=== PATIENT | male | born 2000 | race Caucasian/White ===

== ENCOUNTER 2020-11-03 21:26 | Emergency (ER) | payer OTHER ==
[~2020-11-03] VITALS: Ht 170.2 cm; Wt 54.4 kg
[2020-11-03] MEDS ORDERED: ONDANSETRON HCL/PF 4 MG/2 ML VIAL ONE (22:08)
--- NOTE | 2020-11-03 22:19 | NUR ---
blood collected and sent to the lab with bark peeler.
--- NOTE | 2020-11-03 22:19 | NUR ---
patient to er bed 11 bib girlfriend c/o nausea 3xdays. Patient states that he takes compazine for nasuea, but with no relief. patient states that he has been taking klonopin for anxiety and has not been hansel to take any for the last 3 days due to nausea and vomiting. patient is aaox4. no sob .breathing evenly and unlabored on room air. connected to the monitor.
[2020-11-03 22:24] LABS: BASOPHILS # (AUTO) 0.1 /CMM (0.0-0.2); BASOPHILS % (AUTO) 0.5 % (0.0-2.0); EOSINOPHILS % (AUTO) 1.8 % (0.0-6.0); HEMATOCRIT 40 % (39-51); HEMOGLOBIN 13.5 g/dL (13.5-17.5); LYMPHOCYTES # (AUTO) 4.2 /CMM (0.8-4.8); MEAN CORPUSCULAR HGB CONC 34 g/dl (31.0-36.0); MEAN CORPUSCULAR VOLUME 90 fL (80-96); MONOCYTES # (AUTO) 0.6 /CMM (0.1-1.30); MONOCYTES % (AUTO) 6.1 % (2.0-12.0); NEUTROPHILS # (AUTO) 4.7 /CMM (1.8-8.9); NEUTROPHILS % (AUTO) 48.6 % (43.0-81.0); PLATELET COUNT (AUTO) 145 /CMM (150-450); RED BLOOD CELL COUNT(AUTO) 4.42 MIL/uL (4.5-6.0); WHITE BLOOD COUNT (AUTO) 9.7 K/uL (4.3-11.0)
[2020-11-03] MEDS ORDERED: IV NS 0.9% 1,000 ML BAG IV ONE (22:30)
[2020-11-03] MEDS ORDERED: ONDANSETRON HCL/PF 4 MG/2 ML VIAL IVP ONE (22:30)
--- NOTE | 2020-11-03 22:35 | NUR ---
urine collected sent t o lab
[2020-11-03 22:38] LABS: BILIRUBIN,URINE Negative (NEGATIVE); COLOR,URINE YELLOW (YELLOW); LEUKOCYTE ESTERASE ,URINE Trace (NEGATIVE); NITRITE, URINE Negative (NEGATIVE); PH,URINE 6.5 (5.0-8.0); PROTEIN,URINE Negative (NEGATIVE); UGLUCOSE Negative (NEGATIVE); UROBILINOGEN,URINE 0.2 EU/dL (0.2)
[2020-11-03 22:38] LABS: CALCIUM, SERUM 9.1 mg/dL (8.5-10.1); CREATININE 1.1 mg/dL (0.6-1.3); POTASSIUM 3.9 mmol/L (3.5-5.1)
[2020-11-03 22:43] LABS: ALBUMIN 4.4 g/dL (3.4-5.0); BILIRUBIN,DIRECT 0.1 mg/dL (0.0-0.2); BILIRUBIN,TOTAL 0.2 mg/dL (0.2-1.0)
[2020-11-03 22:54] LABS: BACTERIA,URINE None seen /HPF (None Seen); RBC,URINE 0-2 /HPF (0-2); SQUAMOUS EPITHELIAL CELL,UR Few /HPF (None Seen)
[2020-11-03] MEDS ORDERED: PROM50TA5 GT (22:57)
--- NOTE | 2020-11-03 23:11 | NUR ---
Patient discharged to home in stable condition. Written and verbal after care instructions given. Patient verbalizes understanding of instruction.
--- NOTE | 2020-11-03 23:11 | NUR ---
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
--- NOTE | 2020-11-03 23:11 | NUR ---
IV removed. Catheter intact and site benign. Pressure and 4x4 applied to site. No bleeding noted.
--- NOTE | 2020-11-03 23:11 | NUR ---
Patient is ambulatory with a steady gait.
[2020-11-03 23:14] VITALS: BP 112/78
== END 2020-11-03 23:15 | disposition home or self-care (01) ==
LOC: ER 21:28
DX: R11.2 Nausea with vomiting, unspecified (principal); R10.13 Epigastric pain; R30.0 Dysuria; F41.9 Anxiety disorder, unspecified; F43.10 Post-traumatic stress disorder, unspecified
CPT/HCPCS: 36415; 80048; 80076; 81001; 83690; 85025; 87086; 96361; 96374; 99283; J2405; J7030

== ENCOUNTER 2021-03-22 13:55 | Emergency (ER) | payer OTHER ==
[~2021-03-22] VITALS: Ht 170.2 cm; Wt 76.2 kg
[~2021-03-22 13:55] MED LIST: PROM50TA5 GT
--- NOTE | 2021-03-22 13:55 | NUR ---
PT BIB SELF C/O FEELING WEAK, NAUSEATED, BODY PAIN.UNABLE TO GET HIS METHADONE X 3 DAYS. 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 WILL CONTINUE TO MONITOR.
--- NOTE | 2021-03-22 14:37 | NUR ---
SEEN AND EXAMINED BY .
[2021-03-22] MEDS ORDERED: ACETAMINOPHEN ES 500 MG TABLET ONE (14:45)
[2021-03-22] MEDS ORDERED: ONDANSETRON HCL/PF 4 MG/2 ML VIAL ONE (14:45)
--- NOTE | 2021-03-22 14:55 | NUR ---
IV LINE ESTABLISHED BLOOD DRAWN AND SENT TO LAB.
[2021-03-22] MEDS ORDERED: ONDANSETRON HCL/PF 4 MG/2 ML VIAL IVP ONE (15:00)
[2021-03-22] MEDS ORDERED: IV NS 0.9% 1,000 ML BAG IV ONE (15:00)
[2021-03-22] MEDS ORDERED: LORAZEPAM INJ 2 MG/ML VIAL IV ONE ×2 (15:00→16:30)
[2021-03-22] MEDS ORDERED: ACETAMINOPHEN ES 500 MG TABLET PO ONE (15:00)
[2021-03-22] MEDS ORDERED: LORAZEPAM INJ 2 MG/ML VIAL ONE ×2 (15:01→16:36)
[2021-03-22 15:07] LABS: BASOPHILS % (AUTO) 0.3 % (0.0-2.0); EOSINOPHILS % (AUTO) 0.2 % (0.0-6.0); HEMATOCRIT 38 % (39-51); LYMPHOCYTES # (AUTO) 1.1 K/uL (0.8-4.8); MEAN CORPUSCULAR HGB CONC 34 g/dl (31.0-36.0); MEAN CORPUSCULAR VOLUME 90 fL (80-96); MONOCYTES # (AUTO) 0.4 K/uL (0.1-1.30); MONOCYTES % (AUTO) 4.1 % (2.0-12.0); NEUTROPHILS # (AUTO) 7.2 K/uL (1.8-8.9); NEUTROPHILS % (AUTO) 82.4 % (43.0-81.0); PLATELET COUNT (AUTO) 211 K/uL (150-450); RED BLOOD CELL COUNT(AUTO) 4.24 MIL/uL (4.5-6.0); WHITE BLOOD COUNT (AUTO) 8.7 K/uL (4.3-11.0)
--- NOTE | 2021-03-22 15:14 | NUR ---
URINE SPECIMEN COLLECTED AND SENT TO LAB.
[2021-03-22 15:18] LABS: CALCIUM, SERUM 9.7 mg/dL (8.5-10.1); CARBON DIOXIDE 31 mmol/L (21-32); CHLORIDE 103 mmol/L (98-107); CREATININE 0.8 mg/dL (0.6-1.3); GLUCOSE 113 mg/dL (74-106); POTASSIUM 4.1 mmol/L (3.5-5.1); SODIUM SERUM 144 mmol/L (136-145); UREA NITROGEN, BLOOD 5 mg/dL (7-18)
[2021-03-22 15:23] LABS: ALANINE AMINOTRANSFERASE 78 U/L (12-78); ALBUMIN 4.4 g/dL (3.4-5.0); ALCOHOL, BLOOD < 3 mg/dL (0-0); ALKALINE PHOSPHATASE 129 U/L (46-116); ASPARTATE AMINOTRANSFERASE 31 U/L (15-37); BILIRUBIN,DIRECT 0.1 mg/dL (0.0-0.2); BILIRUBIN,TOTAL 0.2 mg/dL (0.2-1.0); TOTAL PROTEIN, SERUM 8.7 g/dL (6.4-8.2)
[2021-03-22 15:29] LABS: BILIRUBIN,URINE SMALL (NEGATIVE); COLOR,URINE YELLOW (YELLOW); LEUKOCYTE ESTERASE ,URINE NEGATIVE (NEGATIVE); NITRITE, URINE NEGATIVE (NEGATIVE); PH,URINE 7.5 (5.0-8.0); PROTEIN,URINE TRACE mg/dl (NEGATIVE); UGLUCOSE NEGATIVE (NEGATIVE); UROBILINOGEN,URINE 0.2 EU/dL (0.2)
[2021-03-22 15:35] LABS: BACTERIA,URINE 1+ /HPF (None Seen); MUCUS,URINE Few /LPF (None Seen)
[2021-03-22 16:58] VITALS: BP 120/76
--- NOTE | 2021-03-22 16:58 | NUR ---
IV removed. Catheter intact and site benign. Pressure and 4x4 applied to site. No bleeding noted. Patient discharged to home in stable condition. Written and verbal after care instructions given. Patient verbalizes understanding of instruction.
== END 2021-03-22 16:58 | disposition home or self-care (01) ==
LOC: ER 13:55
DX: R42 Dizziness and giddiness (principal); F11.20 Opioid dependence, uncomplicated; R11.0 Nausea; G89.29 Other chronic pain; F41.9 Anxiety disorder, unspecified; F43.10 Post-traumatic stress disorder, unspecified; Z79.899 Other long term (current) drug therapy
CPT/HCPCS: 36415; 80048; 80076; 80307; 80320; 81001; 85025; 87086; 93005; 96361; 96374; 96375; 96376; 99284; J2060 ×2; J2405; J7030; G0480

== ENCOUNTER 2021-04-11 14:53 | Emergency (ER) | payer OTHER ==
[~2021-04-11] VITALS: Ht 165.1 cm; Wt 59.0 kg
[2021-04-11 15:18] VITALS: BP 111/67
--- NOTE | 2021-04-11 16:09 | NUR ---
AT BEDSIDE FOR EVAL.
[2021-04-11] MEDS ORDERED: ONDA4TAB5 PO (16:57)
== END 2021-04-11 17:06 | disposition home or self-care (01) ==
LOC: ER 15:16
DX: S70.01XA Contusion of right hip, initial encounter (principal); R11.0 Nausea; G89.29 Other chronic pain; F41.9 Anxiety disorder, unspecified; F43.10 Post-traumatic stress disorder, unspecified; W18.39XA Other fall on same level, initial encounter; Y93.89 Activity, other specified; Y92.89 Other specified places as the place of occurrence of the external cause; Y99.8 Other external cause status
CPT/HCPCS: 72170-TC

== ENCOUNTER 2021-04-21 21:21 | Emergency (ER) | payer OTHER ==
[~2021-04-21] VITALS: Ht 167.6 cm; Wt 54.4 kg
[~2021-04-21 21:21] MED LIST changes: +ONDA4TAB5 PO
[2021-04-21 21:53] VITALS: BP 98/61
[2021-04-21] MEDS ORDERED: OXYC-128 PO (22:16)
== END 2021-04-21 22:45 | disposition home or self-care (01) ==
LOC: ER 21:26
DX: M25.552 Pain in left hip (principal); M25.551 Pain in right hip; G40.909 Epilepsy, unspecified, not intractable, without status epilepticus; F41.9 Anxiety disorder, unspecified; F43.10 Post-traumatic stress disorder, unspecified; Z79.899 Other long term (current) drug therapy

== ENCOUNTER 2021-05-01 17:17 | Emergency (ER) | payer OTHER ==
[~2021-05-01] VITALS: Ht 167.6 cm; Wt 54.4 kg
[~2021-05-01 17:17] MED LIST changes: +OXYC-128 PO
--- NOTE | 2021-05-01 17:37 | NUR ---
PT TO ER BED 09 C/O NAUSEA AND VOMITNG X 2 DAYS. 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 AWAITNG MD MILLAN.
[2021-05-01] MEDS ORDERED: ALPR1TAB2 PO (17:38)
--- NOTE | 2021-05-01 17:54 | NUR ---
DR PALACIOS AT BEDSIDE FOR EVAL.
--- NOTE | 2021-05-01 17:56 | NUR ---
INFO FOR THE PT: [facility] [phone]
[2021-05-01] MEDS ORDERED: PROM12.512 RC (18:01)
[2021-05-01] MEDS: PROMETHAZINE HCL 25 MG/SUPP.RECT RC PRN (18:20)
[2021-05-01 18:26] VITALS: BP 115/62
--- NOTE | 2021-05-01 18:26 | NUR ---
Patient discharged to home in stable condition. Written and verbal after care instructions given. Patient verbalizes understanding of instruction.
== END 2021-05-01 18:27 | disposition home or self-care (01) ==
LOC: ER 17:21
DX: R11.2 Nausea with vomiting, unspecified (principal); F41.9 Anxiety disorder, unspecified; F43.10 Post-traumatic stress disorder, unspecified; Z79.899 Other long term (current) drug therapy

== ENCOUNTER 2021-05-03 10:42 | Emergency (ER) | payer OTHER ==
[~2021-05-03] VITALS: Ht 165.1 cm; Wt 59.0 kg
[~2021-05-03 10:42] MED LIST changes: +ALPR1TAB2 PO; +PROM12.512 RC
[2021-05-03 10:57] VITALS: BP 154/81
[2021-05-03] MEDS ORDERED: ALPR0.25 PO (11:13)
[2021-05-03] MEDS ORDERED: ALPRAZOLAM 0.5 MG TABLET ONE (11:24)
[2021-05-03] MEDS ORDERED: ALPRAZOLAM 0.5 MG TABLET PO ONE (11:30)
== END 2021-05-03 11:25 | disposition home or self-care (01) ==
LOC: ER 10:46
DX: F41.9 Anxiety disorder, unspecified (principal); G89.29 Other chronic pain; F43.10 Post-traumatic stress disorder, unspecified; Z79.899 Other long term (current) drug therapy

== ENCOUNTER 2022-11-22 13:20 | Emergency (ER) | payer OTHER ==
[~2022-11-22] VITALS: Ht 165.1 cm; Wt 56.7 kg
[~2022-11-22 13:20] MED LIST changes: +ALPR0.25 PO
--- NOTE | 2022-11-22 13:20 | NUR ---
JENNIFER FONSECA [id number] FROM [facility] STATING THAT HE HAS HAD NAUSEA AND VOMITING X1 DAYS AND FEELING WEAK.
[2022-11-22] MEDS ORDERED: ONDANSETRON HCL/PF 4 MG/2 ML VIAL IVP ONE (17:30)
[2022-11-22] MEDS ORDERED: IV NS 0.9% 1,000 ML BAG IV ONE (17:30)
[2022-11-22] MEDS ORDERED: ONDANSETRON HCL/PF 4 MG/2 ML VIAL ONE (18:16)
--- NOTE | 2022-11-22 18:29 | NUR ---
IV ESTABLISHED L AC 20G. LABS COLLECTED AND SENT.
[2022-11-22 18:47] LABS: CALCIUM, SERUM 9.4 mg/dL (8.5-10.1); CREATININE 0.9 mg/dL (0.6-1.3)
[2022-11-22 18:53] LABS: ALBUMIN 4.9 g/dL (3.4-5.0); BILIRUBIN,DIRECT 0.2 mg/dL (0.0-0.2); BILIRUBIN,TOTAL 0.5 mg/dL (0.2-1.0)
[2022-11-22] MEDS ORDERED: ALPRAZOLAM 0.5 MG TABLET PO ONE (19:00)
[2022-11-22] MEDS ORDERED: ONDA4TAB11 PO (19:11)
[2022-11-22 19:59] LABS: BASOPHILS % (AUTO) 0.1 % (0.0-2.0); EOSINOPHILS % (AUTO) 0.1 % (0.0-6.0); HEMATOCRIT 42 % (39-51); HEMOGLOBIN 13.8 g/dL (13.5-17.5); LYMPHOCYTES # (AUTO) 3.1 K/uL (0.8-4.8); MEAN CORPUSCULAR HGB CONC 33 g/dl (31.0-36.0); MEAN CORPUSCULAR VOLUME 92 fL (80-96); MONOCYTES # (AUTO) 0.7 K/uL (0.1-1.30); MONOCYTES % (AUTO) 4.3 % (2.0-12.0); NEUTROPHILS # (AUTO) 13.2 K/uL (1.8-8.9); NEUTROPHILS % (AUTO) 77.5 % (43.0-81.0); PLATELET COUNT (AUTO) 196 K/uL (150-450); RED BLOOD CELL COUNT(AUTO) 4.56 MIL/uL (4.5-6.0); WHITE BLOOD COUNT (AUTO) 17.1 K/uL (4.3-11.0)
[2022-11-22] MEDS ORDERED: LORAZEPAM INJ 2 MG/ML VIAL IV ONE (20:00)
[2022-11-22] MEDS ORDERED: LORAZEPAM INJ 2 MG/ML VIAL ONE (20:19)
[2022-11-22 21:15] VITALS: BP 113/64
--- NOTE | 2022-11-22 21:15 | NUR ---
Patient discharged to home in stable condition. Written and verbal after care instructions given. Patient verbalizes understanding of instruction.
== END 2022-11-22 21:16 | disposition home or self-care (01) ==
LOC: ER 13:24
DX: R11.2 Nausea with vomiting, unspecified (principal); F11.20 Opioid dependence, uncomplicated; F13.20 Sedative, hypnotic or anxiolytic dependence, uncomplicated; M79.673 Pain in unspecified foot; G89.29 Other chronic pain; F41.9 Anxiety disorder, unspecified; Z79.899 Other long term (current) drug therapy
CPT/HCPCS: 99284; 96374; 96361; 96375; 85025; 80048; 83690; 80076; 36415; J2060; J2405; J7030